=== PATIENT | female | born 1955 | race Hispanic/Latino ===

== ENCOUNTER 2017-09-30 14:03 | Outpatient (CLI) | payer BC | END 2017-09-30 14:04 | disposition home or self-care (01) | LOC: BICMAMMO 14:03 | PROVIDERS: ATTEND Obstetrics & Gynecology | DX: Z12.31 Encounter for screening mammogram for malignant neoplasm of breast (principal); Z80.3 Family history of malignant neoplasm of breast | CPT/HCPCS: 77063; 77067; 77080 ==

== ENCOUNTER 2017-10-14 08:41 | Outpatient (CLI) | payer BC | END 2017-10-14 08:42 | disposition home or self-care (01) | LOC: BICMAMMO 08:41 | PROVIDERS: ATTEND Obstetrics & Gynecology | DX: N63.0 Unspecified lump in unspecified breast (principal); Z80.3 Family history of malignant neoplasm of breast | CPT/HCPCS: G0279 ==

== ENCOUNTER 2018-10-21 12:51 | Outpatient (CLI) | payer BC ==
--- NOTE | 2018-10-21 13:45 | MMO ---
Bilateral MAMMO Bilat Screen [facility]. CLINICAL HISTORY: Patient is 63 years old and is seen for screening. The patient has the following family history of breast cancer: maternal aunt, at age 60. The patient has no personal history of cancer. VIEWS: The views performed were: bilateral craniocaudal with tomosynthesis and bilateral mediolateral oblique with tomosynthesis. FILMS COMPARED: The present examination has been compared to prior imaging studies performed at [facility] on 06/07/2007, 06/12/2008, 06/14/2009, 06/17/2010, 06/18/2011, 08/13/2012, 08/17/2013, 08/18/2014, 09/12/2015, 09/12/2016, 09/30/2017 and 10/14/2017. MAMMOGRAM FINDINGS: Finding 1: There are stable benign appearing calcifications seen in both breasts. Finding 2: There is a stable focal asymmetry seen in the left breast. There are no suspicious masses, suspicious calcifications, or new areas of architectural distortion. IMPRESSION: THERE IS NO MAMMOGRAPHIC EVIDENCE OF MALIGNANCY. A ROUTINE FOLLOW-UP MAMMOGRAM IN 1 YEAR IS RECOMMENDED. THE RESULTS OF THIS EXAM WERE SENT TO THE PATIENT. ACR BI-RADS Category 2 - Benign finding MAMMOGRAPHY NOTE: 1. A negative mammogram report should not delay a biopsy if a dominant of clinically suspicious mass is present. 2. Approximately 10% to 15% of breast cancers are not detected by mammography. 3. Adenosis and dense breasts may obscure an underlying neoplasm.
== END 2018-10-21 12:52 | disposition home or self-care (01) ==
LOC: BICMAMMO 12:51
PROVIDERS: ATTEND Obstetrics & Gynecology
DX: Z12.31 Encounter for screening mammogram for malignant neoplasm of breast (principal); Z80.3 Family history of malignant neoplasm of breast
CPT/HCPCS: 77063; 77067

== ENCOUNTER 2019-11-08 12:56 | Outpatient (CLI) | payer BC ==
--- NOTE | 2019-11-08 14:01 | MMO ---
Bilateral MAMMO Bilat Screen [facility]. CLINICAL HISTORY: Patient is 64 years old and is seen for screening. The patient has the following family history of breast cancer: maternal aunt, at age 60. The patient has no personal history of cancer. VIEWS: The views performed were: bilateral craniocaudal with tomosynthesis and bilateral mediolateral oblique with tomosynthesis. FILMS COMPARED: The present examination has been compared to prior imaging studies performed at [facility] on 09/12/2016, 09/30/2017, 10/14/2017 and 10/21/2018. This study has been interpreted with the assistance of computer-aided detection. MAMMOGRAM FINDINGS: There are scattered fibroglandular densities. Benign calcifications are noted bilaterally. There are no suspicious masses, suspicious calcifications, or new areas of architectural distortion. IMPRESSION: THERE IS NO MAMMOGRAPHIC EVIDENCE OF MALIGNANCY. A ROUTINE FOLLOW-UP MAMMOGRAM IN 1 YEAR IS RECOMMENDED. THE RESULTS OF THIS EXAM WERE SENT TO THE PATIENT. ACR BI-RADS Category 2 - Benign finding MAMMOGRAPHY NOTE: 1. A negative mammogram report should not delay a biopsy if a dominant of clinically suspicious mass is present. 2. Approximately 10% to 15% of breast cancers are not detected by mammography. 3. Adenosis and dense breasts may obscure an underlying neoplasm. Reported by: YOVANI JONES MD Electonically Signed: [id number]
--- NOTE | 2019-11-08 14:02 | BD ---
BONE DENSITOMETRY USING DEXA: 11/08/19 HISTORY: Screening for postmenopausal osteoporosis. Lumbar Spine: BMD (g/cm2) T-SCORE Z-SCORE L1 0.945 -0.4 1.1 L2 0.996 -0.3 1.3 L3 1.001 -0.8 1.0 L4 1.103 -0.4 2.2 L1-L4 1.027 -0.2 1.5 Femoral Neck: 0.653 -1.8 -0.3 Total Femur: 0.761 -1.5 -0.4 The ten year fracture risk for a major osteoporotic fracture is 8.7% and for hip fracture 0.9%. IMPRESSION Osteopenia. POS: [facility]
== END 2019-11-08 12:57 | disposition home or self-care (01) ==
LOC: BICMAMMO 12:56
PROVIDERS: ATTEND Obstetrics & Gynecology
DX: Z12.31 Encounter for screening mammogram for malignant neoplasm of breast (principal); Z13.820 Encounter for screening for osteoporosis; M85.859 Other specified disorders of bone density and structure, unspecified thigh; Z80.3 Family history of malignant neoplasm of breast
CPT/HCPCS: 77063; 77067; 77080

== ENCOUNTER 2020-11-09 14:29 | Outpatient (CLI) | payer BC | END 2020-11-09 14:30 | disposition home or self-care (01) | LOC: BICMAMMO 14:29 | PROVIDERS: ATTEND Obstetrics & Gynecology | DX: Z12.31 Encounter for screening mammogram for malignant neoplasm of breast (principal); Z80.3 Family history of malignant neoplasm of breast | CPT/HCPCS: 77063; 77067 ==